=== PATIENT | female | born 1950 | race Caucasian/White ===

== ENCOUNTER → 2016-06-10 | Outpatient (CLI) | payer OTHER, MEDICARE ==
[~2016-06-10] VITALS: Ht 157.5 cm; Wt 79.5 kg
[~2016-06-10] MED LIST: ALPRAZOLAM0.5 MG PO; CARDURA4 MG PO; ERYTHROMYC1 APPLICAT LEFT EYE; PRAVASTATIN SOD40 MG PO; TOPROL XL25 MG PO; TRIAMTERENE-HC1 EAC1 PO
== END | disposition home or self-care (01) ==
LOC: AMB 12:19
PROC: 0DB48ZX Excision of Esophagogastric Junction, Via Natural or Artificial Opening Endoscopic, Diagnostic (ICD-10-PCS; principal; 2016-06-10)
PROC: 0DB68ZX Excision of Stomach, Via Natural or Artificial Opening Endoscopic, Diagnostic (ICD-10-PCS; principal; 2016-06-10)
DX: R10.13 Epigastric pain (principal); K21.9 Gastro-esophageal reflux disease without esophagitis; K29.70 Gastritis, unspecified, without bleeding; K31.7 Polyp of stomach and duodenum; K20.9 Esophagitis, unspecified; I10 Essential (primary) hypertension; J45.909 Unspecified asthma, uncomplicated
CPT/HCPCS: 88305; 88342 TC; 93005; J2250; J3010

== ENCOUNTER 2016-06-19 05:43 | Emergency (ER) | payer OTHER, MEDICARE ==
[~2016-06-19] VITALS: Ht 157.5 cm; Wt 74.5 kg
[2016-06-19 06:35] LABS: HEMATOCRIT 37.7 % (36.0-46.0); MCH 30.1 PG (29.0-34.0); MCHC 34.7 G/DL (30.0-36.0); MCV 86.7 FL (83-99); MEAN PLAT.VOLUME 8.9 uM^3 (9.5-12.4); PLATELET COUNT 200 K/uL (156-360); RBC DIS.WIDTH-CV 13.4 % (11.8-14.6); RBC DIS.WIDTH-SD 41.8 % (39-53); RED BLOOD COUNT 4.35 M/uL (3.80-5.20)
[2016-06-19 06:40] LABS: WHITE BLOOD COUNT 4.6 K/uL (4.1-10.2)
[2016-06-19 06:46] LABS: CHLORIDE 107 mEq/L (99-109); POTASSIUM 3.7 mEq/L (3.7-5.4); SODIUM 141 mEq/L (136-147)
[2016-06-19 06:48] LABS: GLUCOSE 87 mg/dL (70-99)
[2016-06-19 06:49] LABS: ANION GAP 9 MEQ/L (2-14)
[2016-06-19 06:50] LABS: TOTAL BILIRUBIN 0.7 mg/dL (0.0-1.0)
[2016-06-19 06:51] LABS: ALKALINE PHOSPHATASE 60 IU/L (3-129)
[2016-06-19 06:52] LABS: GFR ESTIMATE (CALCULATED) 59 mL/min/
[2016-06-19 06:53] LABS: UREA NITROGEN (BUN) 11 mg/dL (9-23)
[2016-06-19 08:18] LABS: ADD MIUA? NO; BILIRUBIN NEGATIVE; BLOOD NEGATIVE; COLOR LT YELLOW ((YELLOW)); GLUCOSE (STRIP) NEGATIVE; KETONES NEGATIVE; LEUKOCYTES NEGATIVE; NITRITE NEGATIVE; PH, URINE 6.5 (5-8); PROTEIN (STRIP) NEGATIVE; SPECIFIC GRAVITY 1.009 (1.000-1.030); UCUL ADDED? NO; UROBILINOGEN 0.2 MG/DL (0.2-1.0)
[2016-06-19] MEDS ORDERED: VALIUM5 MG PO (10:37)
[2016-06-19] MEDS ORDERED: ANTIVERT25 MG PO (10:37)
[2016-06-19 10:53] VITALS: BP 153/88
== END 2016-06-19 10:54 | disposition home or self-care (01) ==
LOC: EME 05:43
DX: H81.10 Benign paroxysmal vertigo, unspecified ear (principal); I10 Essential (primary) hypertension; J45.909 Unspecified asthma, uncomplicated; K21.9 Gastro-esophageal reflux disease without esophagitis
CPT/HCPCS: 70450; 70551; 80053; 81003; 85027; 99281; 99285; J3360; J7030; J7040